=== PATIENT | female | born 1970 | race Caucasian/White ===

== ENCOUNTER → 2017-02-12 | Outpatient (CLI) | payer BC | LOC: MC.RAD 11:33 | DX: Z12.31 Encounter for screening mammogram for malignant neoplasm of breast (principal) ==

== ENCOUNTER → 2019-02-09 | Outpatient (CLI) | payer BC | LOC: MC.RAD 15:08 | DX: Z12.31 Encounter for screening mammogram for malignant neoplasm of breast (principal) ==

== ENCOUNTER 2019-05-27 07:45 | Day surgery (SDC) | payer BC ==
[~2019-05-27] VITALS: Ht 170.2 cm; Wt 69.4 kg
[2019-05-27 08:03] VITALS: BP 112/75; PULSE 76; TEMP 96.5
[2019-05-27 09:20] VITALS: BP 118/73; PULSE 66; TEMP 97.3
--- NOTE | 2019-05-27 09:20 | NUR ---
Patient arrives to [facility] via cart, accompanied by Endo RN . She is drowsy, but oriented. She ambulates with standby assist to the chair in the room. Monitoring is applied - VSS and WNL on room air. She denies pain or nausea. Lights lowered so she may rest. Spouse at the bedside.
[2019-05-27 09:35] VITALS: BP 119/81; PULSE 65
--- NOTE | 2019-05-27 09:35 | NUR ---
Patient is escorted to the restroom, voids, and returns to room. VSS and WNL on room air. She is more alert. She requests and receives Sprite and crackers to eat. Dr. Orozco speaks with patient and her spouse.
[2019-05-27 09:50] VITALS: BP 106/69; PULSE 69
--- NOTE | 2019-05-27 09:50 | NUR ---
VSS and WNL on room air. Patient has met discharge criteria. She states "I'm ready to go home". PIV removed with catheter intact and hemostasis achieved. Discharge instructions are discussed. She denies any questions and verbalizes understanding. CHanging to clothing independently.
--- NOTE | 2019-05-27 10:00 | NUR ---
Patient is escorted to the exit via wheelchair by staff. Discharged to home with ride in private vehicle at 1000.
== END 2019-05-27 10:00 | disposition home or self-care (01) ==
LOC: SDCO 07:45
DX: Z12.11 Encounter for screening for malignant neoplasm of colon (principal); K57.30 Diverticulosis of large intestine without perforation or abscess without bleeding; K64.8 Other hemorrhoids; F32.4 Major depressive disorder, single episode, in partial remission; E78.5 Hyperlipidemia, unspecified; Z90.710 Acquired absence of both cervix and uterus; Z90.722 Acquired absence of ovaries, bilateral; Z90.79 Acquired absence of other genital organ(s)
CPT/HCPCS: J2704; J7030

== ENCOUNTER → 2020-03-21 | Outpatient (CLI) | payer BC | LOC: MC.RAD 15:08 | DX: Z12.31 Encounter for screening mammogram for malignant neoplasm of breast (principal) ==

== ENCOUNTER → 2021-05-11 | Outpatient (CLI) | payer BC | LOC: MC.RAD 12:53 | DX: Z12.31 Encounter for screening mammogram for malignant neoplasm of breast (principal) ==

== ENCOUNTER → 2022-07-24 | Outpatient (CLI) | payer BC | LOC: MC.RAD 13:04 | DX: Z12.31 Encounter for screening mammogram for malignant neoplasm of breast (principal) ==